=== PATIENT | male | born 1995 | race Caucasian/White ===

== ENCOUNTER 2017-01-21 22:42 | Emergency (ER) | payer SELFPAY ==
[~2017-01-21] VITALS: Ht 182.9 cm; Wt 90.9 kg
[2017-01-21 22:48] VITALS: BP 129/86; PULSE 91; RESP 20; O2SAT 98
--- NOTE | 2017-01-21 23:14 | ED.REPORT ---
HPI-Facial Injury Date of Service Jan 21, 2017 ED Provider: Dr. Singer 21 y/o male with no pertinent hx presents to the ED complaining of a forehead laceration, onset just prior to arrival. The pt tripped and hit his head on a metal bed frame. He denies LOC upon hitting his head. Nursing Notes Stated Complaint: FOREHEAD LACERATION Chief Complaint: Laceration Nursing Notes Reviewed: Yes Allergies: Uncoded Allergies: MORPINE (Allergy, Intermediate, burning sensation, 05/25/12) Scheduled PRN Ibuprofen (Ibuprofen) 600 Mg Tablet 600 MG PO QID PRN PRN For Pain General Time Seen by Provider: 23:13 Chief Complaint Laceration (forehead) Hx Obtained From: Patient Arrived By: Walk-in Onset Occurred: Just prior to arrival Symptom Duration: Since onset Caused by: Blunt trauma Location: : Forehead Quality: Painful Severity: Current: Mild Severity: Maximum: Mild Immunizations: All up to date, Tetanus up to date Recent Healthcare: No recent doctor visit Similar Sx Previous: No Past Medical History Past Medical History none reported Past Surgical History none reported Smoking History Unknown if Ever Smoker Social History Other Social History: Good social support Ambulatory Status Independent Review of Systems Reports: forehead laceration Neurologic: Denies: Change LOC Complete sys rev & neg: except as marked. Physical Exam Initial Vital Signs Vital Signs (First) Date Time Temp Pulse Resp B/P Pulse Ox O2 Delivery O2 Flow Rate FiO2 01/21/17 22:48 36.8 91 20 129/86 98 Room Air Initial VS: Reviewed Respiratory: Breath sounds normal, No respiratory distress Cardiovascular: Regular rate & rhythm, Heart sounds normal Extremities: Vascular intact, Neuro intact, No swelling, No tenderness Skin: Warm, Dry, No cyanosis Head / Eyes: Normocephalic, PERRL, EOMI 5cm laceration over the forehead and hairline ENT: Atraumatic, No facial swelling Neck: Atraumatic, Supple, Full range of motion Neurologic: Oriented X3, Speech NL, No motor deficits, No sensory deficits General/Constitutional: Awake, Alert, No acute distress, Cooperative Procedures Laceration Management Time: 00:05 Procedure Performed by: ED physician Consent / Setup / Site Prep: Informed consent provided, Consent from patient , Time-out performed, Hand hygiene observed, Stand sterile technique Location of Wound: Middle of the forehead at the hairline Wound Length: 5 cm Local Anesthesia: Lidocaine 1% Digital Block: No Wound Preparation: Betadine Debridement: None Irrigation: Copious Foreign Body Explore / Removal: Explored for foreign body Repair Skin: Nylon (5O) # Sutures - Skin: 12 (8 sutures on the forehead and 4 joshua on the hairline) Closure Layers: 1 Suture Technique: Simple Post-Procedure / Complications: Antibiotic oint applied, Dressing applied, No complications, Condition improved, Tolerated procedure well, Patient stable Re-Eval/Medical Decision Med Decision/Clinical Course Med Decision/Clinical Course: 21-year-old injured in a trip and fall in a darkened house. He sustained a laceration on forehead and up into his hairline. Forehead was repaired as above with 5-0 Ethilon, and area above the hairline secured with joshua. Tolerated this well and was discharged in stable condition forced staple and suture removal in about a week. Re-Evaluation/Progress : Time of Eval: 00:25 Patient Status: Condition improved Re-Evaluation/Progress Note: Discussed diagnosis and plan to discharge. Pt understands and agrees with the plan. F/U instructions and RTER warning given. All questions addressed. Counseled Regarding: Diagnosis, Need for follow-up, When/why to return to ED Discharge & Departure Impression: Primary Impression: Facial laceration Additional Impression: Headache Disposition: Home Discharge Condition All VS Reviewed: Yes Condition: Stable Patient Instructions: Acute Wounds (ED), Head Injury (ED) Additional Instructions: Ibuprofen four times daily if needed for pain/headache. Bacitracin four times daily to the stitch line. Keep it covered at night to avoid contact with her pillow and bedclothes. Return on day six for suture removal. Return sooner if any signs of infection. Return if any repetitive vomiting or other new symptoms develop. May shower, but do not soak the wound. Referrals: Peter Llamas MD (PCP) Scribe Attestation Portions of this note were transcribed by Yadiel Chappell. I, , personally performed the history, physical exam and medical decision- making;I reviewed and confirmed the accuracy of the information in the transcribed note. Signed by Salome Orlando. 01/22/17 00:37 copies to: Peter Llamas MD, Christopher W MD Jan 21, 2017 23:14 Yadiel Chappell Jan 22, 2017 00:33
[2017-01-22] MEDS ORDERED: IBUP-1827 PO (00:29)
[2017-01-22 00:48] VITALS: BP 137/98; PULSE 94; RESP 16; O2SAT 98
== END 2017-01-22 00:36 | disposition home or self-care (01) ==
LOC: SED 22:42
DX: S01.81XA Laceration without foreign body of other part of head, initial encounter (principal); R51 Headache; W18.09XA Striking against other object with subsequent fall, initial encounter; Y93.89 Activity, other specified; Y99.8 Other external cause status; Y92.009 Unspecified place in unspecified non-institutional (private) residence as the place of occurrence of the external cause; Z88.5 Allergy status to narcotic agent